=== PATIENT | male | born 1955 | race Two or more races ===

== ENCOUNTER 2017-09-28 22:45 | Observation (INO) | payer OTHER ==
[2017-09-28] MEDS ORDERED: ASPIRIN 81 MG TABLET, CHEWABLE PO ONE (23:43)
[2017-09-29] MEDS ORDERED: NITROGLYCERIN 2% OINTMENT 1 GM PACKET TP ONE (01:24)
--- NOTE | 2017-09-29 01:24 | ER Document Report ---
ED General - General Chief Complaint: Chest Pain Stated Complaint: CHEST TIGHTNESS Time Seen by Provider: 09/29/17 01:05 Mode of Arrival: Ambulatory Information source: Patient Notes: This is a 62-year-old man who presents to the emergency room with left-sided chest pain. Patient does have a history of hypertension and states that he has been noncompliant with his medicines. I think this is because of financial reasons. He does report that he was admitted in July for chest pain. Records reveal that he did have an an STEMI which was felt to be demand ischemia from hypertension. Cardiac workup at that time showed no acute ischemia. TRAVEL OUTSIDE OF THE [place] IN LAST 30 DAYS: No - HPI Onset: Just prior to arrival Onset/Duration: Gradual Quality of pain: Dull Severity: Moderate Pain Level: 2 Associated symptoms: Chest pain. denies: Fever, Shortness of breath Exacerbated by: Denies Relieved by: Denies Similar symptoms previously: Yes Recently seen / treated by doctor: Yes - Related Data Allergies/Adverse Reactions: No Known Allergies Allergy (Verified 09/28/17 23:05) Past Medical History - General Information source: Patient - Social History Smoking Status: Never Smoker Cigarette use (# per day): No Chew tobacco use (# tins/day): No Frequency of alcohol use: None Drug Abuse: None Lives with: Spouse/Significant other Family History: Malignancy - Gastric cancer and hepatic cancer - Past Medical History Cardiac Medical History: Reports: Hx Hypertension Renal/ Medical History: Denies: Hx Peritoneal Dialysis Past Surgical History: Reports: Hx Herniorrhaphy - Bilateral, Hx Tonsillectomy Review of Systems - Review of Systems Constitutional: denies: Chills, Fever EENT: No symptoms reported Cardiovascular: See HPI Respiratory: No symptoms reported Gastrointestinal: No symptoms reported Genitourinary: No symptoms reported Male Genitourinary: No symptoms reported Musculoskeletal: No symptoms reported Skin: No symptoms reported Hematologic/Lymphatic: No symptoms reported Neurological/Psychological: No symptoms reported Physical Exam - Vital signs Vitals: Temp Pulse Resp BP Pulse Ox 98 F 77 16 180/115 H 99 09/28/17 23:14 09/28/17 23:14 09/28/17 23:14 09/28/17 23:14 09/28/17 23:14 Notes: Physical exam: GENERAL: 62-year-old man, alert and oriented 3, no acute distress HEAD: Atraumatic, normocephalic. EYES: Pupils equal round and reactive to light, extraocular movements intact, sclera anicteric, conjunctiva are normal. ENT: TMs normal, nares patent, oropharynx clear without exudates. Moist mucous membranes. NECK: Normal range of motion, supple without obvious mass or JVD. LUNGS: Breath sounds clear to auscultation bilaterally and equal. No wheezes rales or rhonchi. HEART: Regular rate and rhythm without murmurs, rubs or gallops. ABDOMEN: Soft, normoactive bowel sounds. No tenderness to palpation. No guarding, no rebound. No masses appreciated. EXTREMITIES: Normal range of motion, no pitting or edema. No clubbing or cyanosis. NEUROLOGICAL: Cranial nerves II through XII grossly intact. Normal speech, moving all extremities. PSYCH: Normal mood, normal affect. SKIN: Warm, Dry, normal turgor, no rashes or lesions noted. Course - Vital Signs Vital signs: Temp Pulse Resp BP Pulse Ox 98 F 77 16 182/110 H 97 09/28/17 23:14 09/28/17 23:14 09/29/17 01:18 09/29/17 01:18 09/29/17 01:18 - Laboratory Result Diagrams: 09/29/17 01:10 09/29/17 02:50 Laboratory results interpreted by me: 09/29/17 02:50 Creatine Kinase 177 H - Diagnostic Test Radiology reviewed: Image reviewed, Reports reviewed - Chest x-ray shows no infiltrates or effusions - EKG Interpretation by Me Rate: Normal Rhythm: NSR - EKG shows normal sinus rhythm with a ventricular rate of 71, no acute ST-T wave change Discharge - Discharge Clinical Impression: Chest pain Condition: Stable Disposition: ADMITTED OBSERVATION Admitting Provider: Hospitalist - dr Barahona Unit Admitted: Telemetry Referrals: JOHN DIAZ MD [Primary Care Provider] - Follow up as needed
[2017-09-29 01:32] LABS: ABSOLUTE BASOPHILS # (AUTO) 0.1 10^3/uL (0.0-0.2); ABSOLUTE EOSINOPHILS # (AUTO) 0.2 10^3/uL (0.0-0.6); ABSOLUTE LYMPHOCYTES (AUTO) 2.1 10^3/uL (0.5-4.7); ABSOLUTE MONOCYTES (AUTO) 0.4 10^3/uL (0.1-1.4); ABSOLUTE NEUT (AUTO) 2.7 10^3/uL (1.7-8.2); BASOPHILS % (AUTO) 1.5 % (0-2); EOSINOPHILS % (AUTO) 4.1 % (0-6); HEMATOCRIT 41.4 % (37.9-51.0); HEMOGLOBIN 14.7 g/dL (13.5-17.0); HGB HCT DIFFERENCE 2.7; LYMPHOCYTES % (AUTO) 37.9 % (13-45); MEAN CORPUSCULAR HEMOGLOBIN 31.6 pg (27.0-33.4); MEAN CORPUSCULAR HGB CONC 35.6 g/dL (32.0-36.0); MEAN CORPUSCULAR VOLUME 89 fl (80-97); MONOCYTES % (AUTO) 7.5 % (3-13); RED BLOOD COUNT 4.67 10^6/uL (4.35-5.55); WHITE BLOOD COUNT 5.4 10^3/uL (4.0-10.5)
[2017-09-29] MEDS ORDERED: ACETAMINOPHEN 325 MG TABLET PO ONE (02:13)
--- NOTE | 2017-09-29 02:16 | RADIOLOGY REPORT (SQ) ---
EXAM DESCRIPTION: CHEST SINGLE VIEW COMPLETED DATE/TIME: 09/29/2017 1:55 am REASON FOR STUDY: chest pain COMPARISON: 08.18.17 EXAM PARAMETERS: NUMBER OF VIEWS: One view. TECHNIQUE: Single frontal radiographic view of the chest acquired. RADIATION DOSE: NA LIMITATIONS: None. FINDINGS: LUNGS AND PLEURA: No opacities, masses or pneumothorax. No pleural effusion. MEDIASTINUM AND HILAR STRUCTURES: No masses. Contour normal. HEART AND VASCULAR STRUCTURES: Heart normal in size. Atherosclerosis. BONES: No acute findings. HARDWARE: None in the chest. OTHER: No other significant finding. IMPRESSION: NO ACUTE RADIOGRAPHIC FINDING IN THE CHEST. TECHNICAL DOCUMENTATION: JOB ID: [id number] [employer]- All Rights Reserved
[2017-09-29 03:32] LABS: ALANINE AMINOTRANSFERASE 39 U/L (21-72); ALBUMIN 3.8 g/dL (3.5-5.0); ALKALINE PHOSPHATASE 73 U/L (38-126); ANION GAP 10 (5-19); ASPARTATE AMINO TRANSFERASE 32 U/L (17-59); BILIRUBIN,DIRECT 0.2 mg/dL (0.0-0.4); BILIRUBIN,TOTAL 0.7 mg/dL (0.2-1.3); BLOOD UREA NITROGEN 11 mg/dL (7-20); CALCIUM 8.7 mg/dL (8.4-10.2); CARBON DIOXIDE 26 mmol/L (22-30); CHLORIDE 107 mmol/L (98-107); CREATINE KINASE 177 U/L (55-170); CREATININE RESULT 0.77 mg/dL (0.52-1.25); GLUCOSE 99 mg/dL (75-110); POTASSIUM 3.7 mmol/L (3.6-5.0); SODIUM 143.3 mmol/L (137-145); TOTAL PROTEIN 6.3 g/dL (6.3-8.2)
[2017-09-29] MEDS ORDERED: MORPHINE SULFATE 10 MG/ML INJ IV PRN (04:21)
[2017-09-29] MEDS ORDERED: ONDANSETRON 4 MG TAB.RAPDIS PO PRN (04:21)
[2017-09-29] MEDS ORDERED: MAG HYDROX/AL HYDROX/SIMETH SUSP 30 ML UDCUP PO PRN (04:21)
[2017-09-29] MEDS ORDERED: LISINOPRIL 10 MG TABLET PO ONE (04:45)
--- NOTE | 2017-09-29 04:59 | PDOC H&P ---
History of Present Illness Admission Date/PCP: 09/29/17 03:54 JOHN DIAZ MD History of Present Illness: KEO FORMAN is a 62 year old male with a hx of NSTEMI in july, hypertension, hyperlipidemia who presents with complaints of chest pain. He reports the chest pain started at 7 PM slightly after dinner. He reports it was pressure on the left upper part of his chest and he felt dizzy with this. He denies any associated shortness of breath, diaphoresis, nausea, vomiting. His pain does not radiate. Patient is found to have hypertensive emergency on presentation. Patient was admitted in July for chest pain at which time he did have an elevation of his cardiac enzymes and was found to have a NSTEMI and was subsequently stressed which was found to be negative. He is referred to the hospital service for chest pain. Past Medical History Cardiac Medical History: Reports: Myocardial Infarction, Hyperlipidema, Hypertension Past Surgical History Past Surgical History: Reports: Herniorrhaphy - Bilateral, Tonsillectomy Social History Lives with: Spouse/Significant other Smoking Status: Never Smoker Frequency of Alcohol Use: Occasional Hx Recreational Drug Use: No Drugs: None Hx Prescription Drug Abuse: No - Advance Directive Resuscitation Status: Full Code Surrogate healthcare decision maker:: , Yesenia Family History Family History: Malignancy - Gastric cancer and hepatic cancer Parental Family History Reviewed: Yes Children Family History Reviewed: Yes Sibling(s) Family History Reviewed.: Yes Medication/Allergy Home Medications: Aspirin [Aspirin 81 mg Chewable Tablet] 81 mg PO DAILY tab.chew 08/20/17 Atorvastatin Calcium [Lipitor 10 mg Tablet] 40 mg PO QHS #30 tablet 08/20/17 Carvedilol [Coreg 6.25 mg Tablet] 6.25 mg PO Q12 #60 tablet 08/20/17 Clopidogrel Bisulfate [Plavix 75 mg Tablet] 75 mg PO DAILY #30 tablet 08/20/17 Hydrochlorothiazide [Hydrodiuril 12.5 mg Capsule] 12.5 mg PO QAM #30 capsule Lisinopril [Prinivil 10 mg Tablet] 10 mg PO DAILY #30 tablet 08/20/17 Allergies/Adverse Reactions: No Known Allergies Allergy (Verified 09/28/17 23:05) Review of Systems Constitutional: ABSENT: chills, fever(s), headache(s), weight gain, weight loss Eyes: ABSENT: visual disturbances Ears: ABSENT: hearing changes Cardiovascular: PRESENT: as per HPI, chest pain. ABSENT: dyspnea on exertion, edema, orthropnea, palpitations Respiratory: ABSENT: cough, dyspnea, hemoptysis, sputum Gastrointestinal: ABSENT: abdominal pain, constipation, diarrhea, hematemesis, hematochezia, nausea, vomiting Genitourinary: ABSENT: dysuria, hematuria Musculoskeletal: ABSENT: joint swelling Integumentary: ABSENT: rash, wounds Neurological: ABSENT: abnormal gait, abnormal speech, confusion, dizziness, focal weakness, syncope Psychiatric: ABSENT: anxiety, depression, homidical ideation, suicidal ideation Endocrine: ABSENT: cold intolerance, heat intolerance, polydipsia, polyuria Hematologic/Lymphatic: ABSENT: easy bleeding, easy bruising Physical Exam Vital Signs: Temp Pulse Resp BP Pulse Ox 98 F 77 17 156/107 H 96 09/28/17 23:14 09/28/17 23:14 09/29/17 04:01 09/29/17 04:01 09/29/17 04:01 General appearance: PRESENT: mild distress, well-developed, well-nourished Head exam: PRESENT: atraumatic, normocephalic Eye exam: PRESENT: conjunctival injection, conjunctiva pink, EOMI, PERRLA. ABSENT: scleral icterus Ear exam: PRESENT: normal external ear exam Mouth exam: PRESENT: dry mucosa, tongue midline Neck exam: ABSENT: JVD, lymphadenopathy, thyromegaly, tracheal deviation Respiratory exam: PRESENT: clear to auscultation mauro. ABSENT: rales, rhonchi, wheezes Cardiovascular exam: PRESENT: RRR, +S1, +S2. ABSENT: diastolic murmur, rubs, systolic murmur Pulses: PRESENT: normal dorsalis pedis pul Vascular exam: PRESENT: normal capillary refill GI/Abdominal exam: PRESENT: normal bowel sounds, soft. ABSENT: distended, guarding, mass, organolmegaly, rebound, tenderness Rectal exam: PRESENT: deferred Extremities exam: PRESENT: full ROM. ABSENT: calf tenderness, clubbing, pedal edema Neurological exam: PRESENT: alert, awake, oriented to person, oriented to place , oriented to time, oriented to situation, CN II-XII grossly intact. ABSENT: motor sensory deficit Psychiatric exam: PRESENT: appropriate affect, normal mood. ABSENT: homicidal ideation, suicidal ideation Skin exam: PRESENT: dry, intact, warm. ABSENT: cyanosis, rash Results Laboratory Results: 09/29/17 09/29/17 09/29/17 01:10 02:50 02:50 WBC 5.4 Hgb 14.7 Hct 41.4 Plt Count 166 Potassium 3.7 Creatinine 0.77 Creatine Kinase 177 H Troponin I < 0.012 Impressions: Chest X-Ray 09/28/17 23:43 IMPRESSION: NO ACUTE RADIOGRAPHIC FINDING IN THE CHEST. Status: Imported from PACS Assessment & Plan - Diagnosis (1) Chest pain Qualifiers: Chest pain type: unspecified Qualified Code(s): R07.9 - Chest pain, unspecified Is this a current diagnosis for this admission?: Yes Plan: Place patient on telemetry observation. Monitor for arrhythmia or ST segment changes. Initiate patient on treatment dose Lovenox. Initiate patient on coreg, Lipitor, oxygen, nitroglycerin, morphine, and aspirin. Serial cardiac enzymes every 6 hours. Testing lipid panel in the morning. (2) Hypertensive emergency Is this a current diagnosis for this admission?: Yes (3) Aortic aneurysm Qualifiers: Aortic location: thoracic aorta Presence of rupture: without rupture Qualified Code(s): I71.2 - Thoracic aortic aneurysm, without rupture Is this a current diagnosis for this admission?: Yes Plan: Blood pressure control - Time Time Spent: 30 to 50 Minutes Medications reviewed and adjusted accordingly: Yes Within: within 24 hours - Inpatient Certification Based on my medical assessment, after consideration of the patient's comorbidities, presenting symptoms, or acuity I expect that the services needed warrant INPATIENT care.: No I certify that my determination is in accordance with my understanding of Medicare's requirements for reasonable and necessary INPATIENT services [42 CFR 412.3e].: No Medical Necessity: Need For Continuous Telemetry Monitoring Post Hospital Care: D/C [employer] Worker Documentation
[2017-09-29 05:54] LABS: CREATINE KINASE MB 1.63 ng/mL (<4.55)
[2017-09-29 05:59] LABS: TROPONIN I < 0.012 ng/mL
[2017-09-29] MEDS: NITROGLYCERIN 2% OINTMENT 1 GM PACKET TP SCH ×2 (06:00→11:56)
[2017-09-29] MEDS: HYDROCHLOROTHIAZIDE 12.5 MG CAPSULE PO SCH (08:38)
--- NOTE | 2017-09-29 09:47 | EKG REPORT ---
SEVERITY:- BORDERLINE ECG - SINUS RHYTHM BORDERLINE T ABNORMALITIES, INFERIOR LEADS : Confirmed by: Slim Paz MD 29-Sep-2017 09:46:52
[2017-09-29] MEDS: ASPIRIN 325 MG TABLET, ENT COATED PO SCH (11:48)
[2017-09-29] MEDS: CARVEDILOL 6.25 MG TABLET PO SCH ×2 (11:48→22:45)
[2017-09-29] MEDS: CLOPIDOGREL BISULFATE 75 MG TABLET PO SCH (11:49)
[2017-09-29] MEDS: ENOXAPARIN SODIUM INJ 80 MG/0.8 ML DISP.SYRIN SUBCUT SCH ×2 (11:57→22:46)
[2017-09-29 13:14] LABS: CREATINE KINASE MB 1.33 ng/mL (<4.55)
[2017-09-29 13:21] LABS: TROPONIN I < 0.012 ng/mL
--- NOTE | 2017-09-29 16:32 | Progress Note ---
Provider Note Provider Note: Patient seen and his daughter was present who speaks excellent Luxembourgish. They denied the need for cartographic technician. Patient denies any further chest pain. Blood pressure is improving. His major complaint is he is having a headache with the Nitropaste on. He was admitted in July about 5-6 weeks ago for chest pain found to have a type II AR mismatch due to elevated blood pressure and abnormal troponins. Patient had been out of his blood pressure medications due to compliance and financial reasons. Daughter states she has most of his prescriptions and will take him to the pharmacy in the morning to get them filled but the pharmacy is today. Suggested patient be keep him overnight observation monitor his blood pressure, keep him on transport analyst his heart rate, continue the serial his troponins. No need for further stress test at this time felt as if patient will take his medications that his chest pain will go away. I have discussed this with Dr. De La Garza who states that treat patient with Prilosec or Pepcid and we have DC'd his lisinopril due to he has a cough. I have taken the nitro paste off the patient on Imdur while he is in the hospital and was given a prescription to see if he can get financial assistance with it at home. Plan discharge early a.m.
[2017-09-29 17:50] LABS: TROPONIN I < 0.012 ng/mL
[2017-09-29] MEDS: FAMOTIDINE 20 MG TABLET PO SCH (18:14)
[2017-09-29] MEDS: ISOSORBIDE MONONITRATE 30 MG TAB.ER.24H PO SCH (18:14)
[2017-09-29] MEDS: ACETAMINOPHEN 325 MG TABLET PO PRN (19:42)
[2017-09-29] MEDS ORDERED: LISINOPRIL 10 MG TABLET PO SCH (22:00)
[2017-09-29] MEDS ORDERED: ATORVASTATIN CALCIUM 40 MG TABLET PO SCH (22:00)
[2017-09-30] MEDS: ISOSORBIDE MONONITRATE 30 MG TAB.ER.24H PO SCH (05:27)
[2017-09-30] MEDS: FAMOTIDINE 20 MG TABLET PO SCH (05:27)
[2017-09-30] MEDS: ACETAMINOPHEN 325 MG TABLET PO PRN (05:28)
[2017-09-30 06:42] LABS: HEMATOCRIT 37.1 % (37.9-51.0); HEMOGLOBIN 12.9 g/dL (13.5-17.0); HGB HCT DIFFERENCE 1.6; MEAN CORPUSCULAR HEMOGLOBIN 30.8 pg (27.0-33.4); MEAN CORPUSCULAR HGB CONC 34.9 g/dL (32.0-36.0); MEAN CORPUSCULAR VOLUME 88 fl (80-97); RED CELL DISTRIBUTION WIDTH 12.8 % (11.5-14.0); WHITE BLOOD COUNT 6.2 10^3/uL (4.0-10.5)
[2017-09-30 06:53] LABS: CREATINE KINASE 68 U/L (55-170); Direct HDL 33 mg/dL (>40); TRIGLYCERIDES 130 mg/dL (<150)
[2017-09-30 07:03] LABS: DIRECT LDL 76 mg/dL (<100)
[2017-09-30] MEDS: HYDROCHLOROTHIAZIDE 12.5 MG CAPSULE PO SCH (08:02)
[2017-09-30 08:36] VITALS: BP 134/75
[2017-09-30] MEDS: ASPIRIN 325 MG TABLET, ENT COATED PO SCH (08:39)
[2017-09-30] MEDS: CLOPIDOGREL BISULFATE 75 MG TABLET PO SCH (08:40)
[2017-09-30] MEDS: CARVEDILOL 6.25 MG TABLET PO SCH (08:41)
--- NOTE | 2017-09-30 16:55 | PDOC DISCHARGE SUMMARY ---
General - Admit/Disc Date/PCP Admission Date/Primary Care Provider: 09/29/17 03:54 JOHN DIAZ MD Discharge Date: 09/30/17 - Discharge Diagnosis (1) Chest pain Is this a current diagnosis for this admission?: Yes (2) Hypertensive emergency Is this a current diagnosis for this admission?: Yes - Additional Information Resuscitation Status: Full Code Discharge Diet: Cardiac Discharge Activity: Activity As Tolerated Home Medications: Acetaminophen [Tylenol 325 mg Tablet] 650 mg PO Q4HP PRN tablet 09/29/17 Amlodipine Besylate [Norvasc 5 mg Tablet] 5 mg PO DAILY #30 tablet 09/29/17 Aspirin [Aspirin 81 mg Chewable Tablet] 81 mg PO DAILY 09/29/17 Aspirin [Ecotrin 325 mg EC Tablet] 325 mg PO DAILY tabec 09/29/17 Atorvastatin Calcium [Lipitor 10 mg Tablet] 10 mg PO QHS 09/29/17 Atorvastatin Calcium [Lipitor 40 mg Tablet] 40 mg PO QHS tablet 09/29/17 Carvedilol [Coreg 6.25 mg Tablet] 6.25 mg PO Q12 09/29/17 Carvedilol [Coreg 6.25 mg Tablet] 6.25 mg PO Q12 tablet 09/29/17 Clopidogrel Bisulfate [Plavix 75 mg Tablet] 75 mg PO DAILY 09/29/17 Clopidogrel Bisulfate [Plavix 75 mg Tablet] 75 mg PO DAILY tablet 09/29/17 Famotidine [Pepcid 20 mg Tablet] 20 mg PO Q12 #60 tablet 09/29/17 Hydrochlorothiazide [Hydrodiuril 12.5 mg Capsule] 12.5 mg PO QAM #0 capsule 01/11 Hydrochlorothiazide [Hydrodiuril 12.5 mg Capsule] 12.5 mg PO QAM #30 capsule 01/11 Isosorbide Mononitrate [Imdur 30 mg Tablet.er] 30 mg PO BID #60 tab.er.24h 09/29 Lisinopril [Prinivil 10 mg Tablet] 20 mg PO Q12 tablet 09/29/17 History of Present Illness History of Present Illness: KEO FORMAN is a 62 year old male speaking patient seen discharge instructions given via her daughter who speaks excellent Haitian. Patient denies any further chest pain throughout the night. His major complaint is headache with Nitropaste. Suspect he was not taking any of his medications at home causing him to come in the hospital with a hypertensive emergency requiring IV medications to be given in the ER. Financial assistance was obtained. He was given lisinopril which was DC'd due to his cough and was placed on Imdur and per his request he wanted to go home early this morning but I wanted to make sure he was able to get his medications prior to going home which he cannot do yesterday due to the pharmacy was closed Hospital Course Hospital Course: Discuss with cardiology. Patient had a recent stress test about 1 month ago that was negative he had a type II ME abnormal troponins but he has not been taking his medications outpatient so he came in with hypertensive crisis which was controlled his blood pressure stabilized patient agreed to take his home medications. Financial assistance was obtained while he was here. His prescriptions were given to him by the [facility]. Physical Exam Vital Signs: Temp Pulse Resp BP Pulse Ox 98.3 F 69 15 122/72 97 09/30/17 08:32 09/30/17 08:32 09/30/17 08:32 09/30/17 08:32 09/30/17 08:32 Intake & Output 09/29/17 09/30/17 10/01/17 06:59 06:59 06:59 Intake Total 482 Output Total 975 Balance -493 Weight 74.1 kg General appearance: PRESENT: no acute distress, well-developed, well-nourished Head exam: PRESENT: atraumatic, normocephalic Eye exam: PRESENT: conjunctiva pink, EOMI, PERRLA. ABSENT: scleral icterus Ear exam: PRESENT: normal external ear exam Mouth exam: PRESENT: moist, tongue midline Neck exam: ABSENT: carotid bruit, JVD, lymphadenopathy, thyromegaly Respiratory exam: PRESENT: clear to auscultation mauro. ABSENT: rales, rhonchi, wheezes Cardiovascular exam: PRESENT: RRR. ABSENT: diastolic murmur, rubs, systolic murmur Pulses: PRESENT: normal dorsalis pedis pul Vascular exam: PRESENT: normal capillary refill GI/Abdominal exam: PRESENT: normal bowel sounds, soft. ABSENT: distended, guarding, mass, organolmegaly, rebound, tenderness Rectal exam: PRESENT: deferred Extremities exam: PRESENT: full ROM. ABSENT: calf tenderness, clubbing, pedal edema Neurological exam: PRESENT: alert, awake, oriented to person, oriented to place , oriented to time, oriented to situation, CN II-XII grossly intact. ABSENT: motor sensory deficit Psychiatric exam: PRESENT: appropriate affect, normal mood. ABSENT: homicidal ideation, suicidal ideation Skin exam: PRESENT: dry, intact, warm. ABSENT: cyanosis, rash Results Laboratory Results: 09/30/17 06:31 09/30/17 09/30/17 06:31 06:31 WBC 6.2 RBC 4.20 L Hgb 12.9 L Hct 37.1 L MCV 88 MCH 30.8 MCHC 34.9 RDW 12.8 Plt Count 139 L Triglycerides 130 Cholesterol 135.20 LDL Cholesterol Direct 76 VLDL Cholesterol 26.0 HDL Cholesterol 33 L 09/29/17 09/29/17 09/29/17 04:54 11:39 16:50 Creatine Kinase CK-MB (CK-2) 1.63 1.33 1.10 Troponin I < 0.012 < 0.012 < 0.012 09/30/17 06:31 Creatine Kinase 68 CK-MB (CK-2) Troponin I Impressions: Chest X-Ray 09/28/17 23:43 IMPRESSION: NO ACUTE RADIOGRAPHIC FINDING IN THE CHEST. Plan Discharge Plan: Follow-up with his screw remover in 1-2 weeks and his primary care physician Time Spent: Less than 30 Minutes
== END 2017-09-30 09:50 | disposition home or self-care (01) ==
LOC: ER 22:45 → EH 09-29 03:54 → 4S 09-29 05:41
PROVIDERS: ADMIT Family Medicine; ATTEND Family Medicine
DX: R07.89 Other chest pain (principal); I16.1 Hypertensive emergency; R05 Cough; E78.5 Hyperlipidemia, unspecified; I71.2 Thoracic aortic aneurysm, without rupture; I25.2 Old myocardial infarction; Z91.14 Patient's other noncompliance with medication regimen
CPT/HCPCS: 93005; 99285; 36415 ×2; 82553; 82550 ×2; 85025; 85027; 80053; 84484; 80061; 71010; 93010; G0378 ×3; J3490 ×2; J1650

== ENCOUNTER 2018-02-14 03:47 | Observation (INO) | payer OTHER ==
[2018-02-14] MEDS ORDERED: ASPIRIN 81 MG TABLET, CHEWABLE PO ONE (04:13)
--- NOTE | 2018-02-14 04:14 | ER Document Report ---
ED General - General TRAVEL OUTSIDE OF THE [place] IN LAST 30 DAYS: No <JANEE ELMORE - Last Filed: 02/14/18 07:10> <SCAR FABIAN - Last Filed: 02/14/18 08:09> - General Chief Complaint: High Blood Pressure Stated Complaint: BLOOD PRESSURE PROBLEM - HPI Notes: Patient is a 62-year-old male with a history of hypercholesterolemia as well as hypertension who presents to the ED complaining of elevated blood pressure, "mild" chest pain, and bilateral neck pain for the last 2 hours. He states that he did have a mild blurriness to his vision for a couple minutes which has since resolved. Patient states that when his blood pressure rises he develops pain in his bilateral neck is worse with twisting movements. Patient states that the chest pain does not radiate. She states that he is ambulatory without any shortness of breath or worsening pain. Patient states that he is on blood pressure medication and has been taking that daily as directed. Patient was evaluated 6mos ago for similar presentation and was found to have an non-STEMI believed to be caused from the hypertensive emergency. Patient had a negative cardiac workup thereafter for any reversible ischemia. He has no other concerns or complaints at this time. Denies any smoking or IV drug use. Denies any headache, fever, URI, sore throat, palpitations, syncope, cough, shortness of breath, wheeze, dyspnea, abdominal pain, nausea/vomiting/diarrhea, urinary retention, dysuria, hematuria, loss of control of bowel or bladder, numbness/tingling, saddle anesthesia, muscle paralysis/weakness, or rash. ( JANEE ELMORE) - Related Data Allergies/Adverse Reactions: lisinopril Adverse Reaction (Verified 09/29/17 14:43) cough Past Medical History - Social History Smoking Status: Never Smoker Family History: Malignancy - Gastric cancer and hepatic cancer - Past Medical History Cardiac Medical History: Reports: Hx Heart Attack, Hx Hypercholesterolemia, Hx Hypertension Renal/ Medical History: Denies: Hx Peritoneal Dialysis Past Surgical History: Reports: Hx Herniorrhaphy - Bilateral, Hx Tonsillectomy <JANEE ELMORE - Last Filed: 02/14/18 07:10> Review of Systems - Review of Systems -: Yes All other systems reviewed and negative <JANEE ELMORE - Last Filed: 02/14/18 07:10> Physical Exam <JANEE ELMORE - Last Filed: 02/14/18 07:10> <RUISCAR - Last Filed: 02/14/18 08:09> - Vital signs Vitals: Temp Pulse Resp BP Pulse Ox 97.7 F 78 18 204/121 H 99 02/14/18 03:48 02/14/18 03:48 02/14/18 03:48 02/14/18 03:48 02/14/18 03:48 - Notes Notes: PHYSICAL EXAMINATION: GENERAL: Well-appearing, well-nourished and in no acute distress. A&Ox4. answers questions appropriately. HEAD: Atraumatic, normocephalic. EYES: Pupils equal round and reactive to light, extraocular movements intact, sclera anicteric, conjunctiva are normal. Vis robins intact. no nystagmus. ENT: Nares patent and without discharge. oropharynx clear without exudates. No tonsilar hypertrophy or erythema. Moist mucous membranes. NECK: Normal range of motion, supple without lymphadenopathy. + mild tenderness to the c-paraspinal mm b/l. no midline tenderness. N/v intact UE's. LUNGS: Breath sounds clear to auscultation bilaterally and equal. No wheezes rales or rhonchi. HEART: Regular rate and rhythm without murmurs, rubs, gallops. ABDOMEN: Soft, nontender, nondistended abdomen. No guarding, no rebound. No masses appreciated. Normal bowel sounds present. No CVA tenderness bilaterally. Musculoskeletal: FROM to passive/active. Strength 5+/5. Extremities: No cyanosis, clubbing, or edema b/l. Peripheral pulses 2+. Capillary refill less than 3 seconds. NEUROLOGICAL: Cranial nerves grossly intact. Normal speech, normal gait. Normal sensory, motor exams PSYCH: Normal mood, normal affect. SKIN: Warm, Dry, normal turgor, no rashes or lesions noted. (JANEE ELMORE) Course - Laboratory Result Diagrams: 02/14/18 04:35 02/14/18 04:35 <JANEE ELMORE - Last Filed: 02/14/18 07:10> - Laboratory Result Diagrams: 02/14/18 04:35 02/14/18 04:35 - Diagnostic Test Radiology reviewed: Reports reviewed <SCAR FABIAN - Last Filed: 02/14/18 08:09> - Re-evaluation Re-evalutation: 02/14/18 05:30 Patient is an afebrile, well-hydrated, 62-year-old male who presents to the ED with elevated blood pressure and chest pain. CBC, CMP, cardiac enzymes 1/EKG are all unremarkable for any acute pathology. Patient was given nitro sublingual 1 which resolved his chest pain. His blood pressure improved to 140 /100 from 200+/120+. Patient states that he is feeling much better. Patient has a heart score of 4. Reviewed with Dr. Cline who recommends chest pain obs. Reviewed with hospitalist who declined admission at this time and to recheck 2nd trop. We will order 2nd trop and reevaluate at that time. 02/14/18 06:44 Recheck of patient. Pt states that he has a mild MORA, and declined any tylenol for his symptoms at this time. pt states that it is slowly starting to improve. He has no other concerns or complaints and states that he still is feeling much better than when he first arrived. Reviewed with patient that Scar BUSH will be taking over for me about 0700 this morning of which they verbalized understanding. 02/14/18 07:10 Transfer of care to Scar BUSH. (JANEE ELMORE) 02/14/18 07:40 Patient denies any chest pain at this time, patient's blood pressure is starting to trend upward. Patient states that he normally takes amlodipine and Coreg for his blood pressure. Patient's repeat troponin without any elevation. 02/14/18 08:[address] Avitia who does agree to accept patient to a med telemetry bed. (SCAR FABIAN) - Vital Signs Vital signs: Temp Pulse Resp BP Pulse Ox 97.7 F 78 12 160/108 H 98 02/14/18 03:48 02/14/18 03:48 02/14/18 07:21 02/14/18 07:21 02/14/18 07:21 - Laboratory Laboratory results interpreted by me: 02/14/18 04:35 Glucose 112 H 02/14/18 08:08 Labs- Entire Visit 02/14/18 02/14/18 02/14/18 04:35 04:35 04:35 WBC 5.4 RBC 4.90 Hgb 14.9 Hct 43.8 MCV 89 MCH 30.5 MCHC 34.1 RDW 13.4 Plt Count 178 Seg Neutrophils % 55.7 Lymphocytes % 31.4 Monocytes % 8.1 Eosinophils % 3.8 Basophils % 1.0 Absolute Neutrophils 3.0 Absolute Lymphocytes 1.7 Absolute Monocytes 0.4 Absolute Eosinophils 0.2 Absolute Basophils 0.1 PT 13.6 INR 0.99 Sodium 144.4 Potassium 4.2 Chloride 103 Carbon Dioxide 30 Anion Gap 11 BUN 16 Creatinine 0.91 Est GFR ( Amer) > 60 Est GFR (Non-Af Amer) > 60 Glucose 112 H Calcium 9.5 Total Bilirubin 0.5 Direct Bilirubin 0.3 Neonat Total Bilirubin Not Reportable Neonat Direct Bilirubin Not Reportable Neonat Indirect Bili Not Reportable AST 24 ALT 26 Alkaline Phosphatase 64 Creatine Kinase 63 CK-MB (CK-2) Troponin I Total Protein 7.2 Albumin 4.3 Urine Color Urine Appearance Urine pH Ur Specific Valencia Urine Protein Urine Glucose (UA) Urine Ketones Urine Blood Urine Nitrite Urine Bilirubin Urine Urobilinogen Ur Leukocyte Esterase Urine WBC (Auto) Squamous Epi Cells Auto Urine Mucus (Auto) Urine Ascorbic Acid 02/14/18 02/14/18 02/14/18 04:35 06:35 06:50 WBC RBC Hgb Hct MCV MCH MCHC RDW Plt Count Seg Neutrophils % Lymphocytes % Monocytes % Eosinophils % Basophils % Absolute Neutrophils Absolute Lymphocytes Absolute Monocytes Absolute Eosinophils Absolute Basophils PT INR Sodium Potassium Chloride Carbon Dioxide Anion Gap BUN Creatinine Est GFR ( Amer) Est GFR (Non-Af Amer) Glucose Calcium Total Bilirubin Direct Bilirubin Neonat Total Bilirubin Neonat Direct Bilirubin Neonat Indirect Bili AST ALT Alkaline Phosphatase Creatine Kinase CK-MB (CK-2) 1.03 Troponin I < 0.012 < 0.012 Total Protein Albumin Urine Color STRAW Urine Appearance CLEAR Urine pH 6.0 Ur Specific Valencia 1.009 Urine Protein NEGATIVE Urine Glucose (UA) NEGATIVE Urine Ketones NEGATIVE Urine Blood NEGATIVE Urine Nitrite NEGATIVE Urine Bilirubin NEGATIVE Urine Urobilinogen NEGATIVE Ur Leukocyte Esterase NEGATIVE Urine WBC (Auto) 0 Squamous Epi Cells Auto <1 Urine Mucus (Auto) RARE Urine Ascorbic Acid NEGATIVE (SCAR FABIAN) Discharge <JANEE ELMORE - Last Filed: 02/14/18 07:10> - Discharge Unit Admitted: Telemetry <SCAR FABIAN - Last Filed: 02/14/18 08:09> - Discharge Clinical Impression: Hypertensive urgency Chest pain Qualifiers: Chest pain type: unspecified Qualified Code(s): R07.9 - Chest pain, unspecified Condition: Stable Disposition: ADMITTED OBSERVATION
[2018-02-14] MEDS ORDERED: NITROGLYCERIN 0.4 MG/TAB 25 TAB/BOTTLE SL PRN (04:36)
--- NOTE | 2018-02-14 04:45 | RADIOLOGY REPORT (SQ) ---
EXAM DESCRIPTION: CHEST SINGLE VIEW CLINICAL HISTORY: chest pain COMPARISON: 09/29/2017 FINDINGS: Single frontal view of the chest. Tortuosity of thoracic aorta. Heart is not enlarged. Leads overlie the chest. No consolidation, pneumothorax, or pleural effusion. No displaced rib fractures identified. Upper abdominal soft tissues are unremarkable. IMPRESSION: 1. No acute pulmonary process identified.
[2018-02-14 04:51] LABS: ABSOLUTE BASOPHILS # (AUTO) 0.1 10^3/uL (0.0-0.2); ABSOLUTE EOSINOPHILS # (AUTO) 0.2 10^3/uL (0.0-0.6); ABSOLUTE LYMPHOCYTES (AUTO) 1.7 10^3/uL (0.5-4.7); ABSOLUTE MONOCYTES (AUTO) 0.4 10^3/uL (0.1-1.4); EOSINOPHILS % (AUTO) 3.8 % (0-6); HEMATOCRIT 43.8 % (37.9-51.0); HEMOGLOBIN 14.9 g/dL (13.5-17.0); LYMPHOCYTES % (AUTO) 31.4 % (13-45); MEAN CORPUSCULAR HEMOGLOBIN 30.5 pg (27.0-33.4); MEAN CORPUSCULAR HGB CONC 34.1 g/dL (32.0-36.0); MEAN CORPUSCULAR VOLUME 89 fl (80-97); MONOCYTES % (AUTO) 8.1 % (3-13); PLATELET COUNT 178 10^3/uL (150-450); RED CELL DISTRIBUTION WIDTH 13.4 % (11.5-14.0); SEGMENTED NEUTROPHILS % (AUTO) 55.7 % (42-78); TOTAL CELLS COUNTED % (AUTO) 100 %; WHITE BLOOD COUNT 5.4 10^3/uL (4.0-10.5)
[2018-02-14 04:52] LABS: INTERNATIONAL RATION (INR) 0.99; PROTHROMBIN TIME 13.6 SEC (11.4-15.4)
[2018-02-14 05:02] LABS: ALANINE AMINOTRANSFERASE 26 U/L (21-72); ALBUMIN 4.3 g/dL (3.5-5.0); ALKALINE PHOSPHATASE 64 U/L (38-126); ANION GAP 11 (5-19); ASPARTATE AMINO TRANSFERASE 24 U/L (17-59); BILIRUBIN,DIRECT 0.3 mg/dL (0.0-0.4); BILIRUBIN,TOTAL 0.5 mg/dL (0.2-1.3); BLOOD UREA NITROGEN 16 mg/dL (7-20); CALCIUM 9.5 mg/dL (8.4-10.2); CARBON DIOXIDE 30 mmol/L (22-30); CHLORIDE 103 mmol/L (98-107); CREATINE KINASE 63 U/L (55-170); GLUCOSE 112 mg/dL (75-110); POTASSIUM 4.2 mmol/L (3.6-5.0); SODIUM 144.4 mmol/L (137-145); TOTAL PROTEIN 7.2 g/dL (6.3-8.2)
[2018-02-14 05:13] LABS: CREATINE KINASE MB 1.03 ng/mL (<4.55)
[2018-02-14 05:14] LABS: TROPONIN I < 0.012 ng/mL
[2018-02-14 06:49] LABS: APPEARANCE,URINE CLEAR; BILIRUBIN,URINE NEGATIVE (NEGATIVE); COLOR,URINE STRAW; GLUCOSE, URINE NEGATIVE (NEGATIVE); KETONES,URINE NEGATIVE (NEGATIVE); LEUKOCYTE ESTERASE,URINE NEGATIVE (NEGATIVE); NITRITE,URINE NEGATIVE (NEGATIVE); PROTEIN,URINE NEGATIVE (NEGATIVE); URINE SPECIFIC GRAVITY 1.009; UROBILINOGEN,URINE NEGATIVE mg/dL (<2.0)
[2018-02-14] MEDS ORDERED: AMLODIPINE BESYLATE 5 MG TABLET PO ONE (07:40)
[2018-02-14] MEDS ORDERED: CARVEDILOL 6.25 MG TABLET PO ONE (08:02)
[2018-02-14] MEDS ORDERED: ACETAMINOPHEN 325 MG TABLET PO PRN (10:06)
--- NOTE | 2018-02-14 10:27 | EKG REPORT ---
SEVERITY:- NORMAL ECG - SINUS RHYTHM : Confirmed by: Darnell Rutherford 14-Feb-2018 10:26:22
--- NOTE | 2018-02-14 10:30 | PDOC H&P ---
History of Present Illness Admission Date/PCP: 02/14/18 09:15 Patient complains of: Chest tight, elevated blood pressure, visual changes History of Present Illness: KEO FORMAN is a 62 year old male with a history of an end STEMI last fall due to a hypertensive emergency. He reports that he has not been taking his meds due to financial reasons. Last night while lying in bed he felt some chest tightness, head pressure, had visual changes, confusion, and so came into the emergency department. He was treated with nitro with reduction in his blood pressure and resolution of his symptoms. He states he is unable to work due to his immigration status so has no money. He lives at home with his daughter. Looking at the records it appears that he has gotten his Coreg filled last month but not this month and is gotten none of his other meds filled since September. Past Medical History Cardiac Medical History: Reports: Myocardial Infarction - Type II due to hypertensive emergency, Hyperlipidema, Hypertension Neurological Medical History: Reports: None Past Surgical History Past Surgical History: Reports: Herniorrhaphy - Bilateral, Tonsillectomy Social History Information Source: Patient Lives with: Family Smoking Status: Never Smoker Frequency of Alcohol Use: Occasional Hx Recreational Drug Use: No Drugs: None Hx Prescription Drug Abuse: No Family History Family History: Malignancy - Gastric cancer and hepatic cancer Parental Family History Reviewed: Yes Children Family History Reviewed: No Sibling(s) Family History Reviewed.: No Medication/Allergy Home Medications: Amlodipine Besylate [Norvasc 5 mg Tablet] 5 mg PO DAILY #30 tablet 09/29/17 Aspirin [Aspirin 81 mg Chewable Tablet] 81 mg PO DAILY 09/29/17 Atorvastatin Calcium [Lipitor 40 mg Tablet] 40 mg PO QHS tablet 09/29/17 Carvedilol [Coreg 6.25 mg Tablet] 6.25 mg PO Q12 09/29/17 Clopidogrel Bisulfate [Plavix 75 mg Tablet] 75 mg PO DAILY tablet 09/29/17 Famotidine [Pepcid 20 mg Tablet] 20 mg PO Q12 #60 tablet 09/29/17 Hydrochlorothiazide [Hydrodiuril 12.5 mg Capsule] 12.5 mg PO QAM #0 capsule 01/11 Isosorbide Mononitrate [Imdur 30 mg Tablet.er] 30 mg PO BID #60 tab.er.24h 09/29 Allergies/Adverse Reactions: lisinopril Adverse Reaction (Verified 09/29/17 14:43) cough Review of Systems All systems: reviewed and no additional remarkable complaints except as stated Physical Exam Vital Signs: Temp Pulse Resp BP Pulse Ox 97.7 F 78 18 158/110 H 94 02/14/18 03:48 02/14/18 03:48 02/14/18 09:31 02/14/18 09:31 02/14/18 09:31 General appearance: PRESENT: no acute distress, cooperative Respiratory exam: PRESENT: clear to auscultation mauro Cardiovascular exam: PRESENT: RRR GI/Abdominal exam: PRESENT: soft Extremities exam: PRESENT: other - No edema Musculoskeletal exam: PRESENT: normal inspection Neurological exam: PRESENT: alert Psychiatric exam: PRESENT: appropriate affect Skin exam: PRESENT: dry, warm Results Impressions: Chest X-Ray 02/14/18 04:13 IMPRESSION: 1. No acute pulmonary process identified. Assessment & Plan - Diagnosis (1) Hypertensive emergency Plan: We will restart his home medications, monitor him on telemetry, get serial cardiac enzymes, and adjust the plan from there (2) Non compliance w medication regimen Plan: Social work consult to see if they can help him with resources
[2018-02-14] MEDS: POLYETHYLENE GLYCOL 3350 POWDER 17 GM/1 PACKET PO PRN (16:33)
[2018-02-14] MEDS: ISOSORBIDE MONONITRATE 30 MG TAB.ER.24H PO SCH (18:00)
[2018-02-14] MEDS: FAMOTIDINE 20 MG TABLET PO SCH (21:26)
[2018-02-14] MEDS: CARVEDILOL 6.25 MG TABLET PO SCH (21:26)
[2018-02-14] MEDS ORDERED: ATORVASTATIN CALCIUM 40 MG TABLET PO SCH (22:00)
[2018-02-15] MEDS: ISOSORBIDE MONONITRATE 30 MG TAB.ER.24H PO SCH (05:47)
[2018-02-15] MEDS ORDERED: AMLODIPINE BESYLATE 5 MG TABLET PO SCH (10:00)
[2018-02-15] MEDS ORDERED: ASPIRIN 81 MG TABLET, CHEWABLE PO SCH (10:00)
[2018-02-15] MEDS ORDERED: ENOXAPARIN SODIUM INJ 40 MG/0.4 ML DISP.SYRIN SUBCUT SCH (10:00)
[2018-02-15] MEDS ORDERED: CLOPIDOGREL BISULFATE 75 MG TABLET PO SCH (10:00)
[2018-02-15] MEDS: FAMOTIDINE 20 MG TABLET PO SCH (11:13)
[2018-02-15] MEDS: CARVEDILOL 6.25 MG TABLET PO SCH (11:14)
[2018-02-15] MEDS: POLYETHYLENE GLYCOL 3350 POWDER 17 GM/1 PACKET PO PRN (11:15)
[2018-02-15 12:51] VITALS: BP 113/70
--- NOTE | 2018-02-15 15:10 | PDOC DISCHARGE SUMMARY ---
General - Admit/Disc Date/PCP Admission Date/Primary Care Provider: 02/14/18 09:15 Discharge Date: 02/15/18 - Discharge Diagnosis (1) Hypertensive emergency Is this a current diagnosis for this admission?: Yes Summary: Home medications were resumed and blood pressure normalized. Cardiac enzymes were negative 4. Telemetry was unremarkable. (2) Non compliance w medication regimen Is this a current diagnosis for this admission?: Yes Summary: Due to financial issues. He does not appear to be eligible for governmental assistance due to his immigration status. I gave him prescriptions for all of his medications. - Additional Information Resuscitation Status: Full Code Discharge Diet: Cardiac Discharge Activity: Activity As Tolerated Prescriptions: Amlodipine Besylate [Norvasc 5 mg Tablet] 5 mg PO DAILY #30 tablet Carvedilol [Coreg 6.25 mg Tablet] 6.25 mg PO DAILY #60 tablet Clopidogrel Bisulfate [Plavix 75 mg Tablet] 75 mg PO DAILY #30 tablet MDD LAST FILLED 09/30/17 Isosorbide Mononitrate [Imdur 30 mg Tablet.er] 30 mg PO BID #60 tab.er.24h Home Medications: Aspirin [Aspirin 81 mg Chewable Tablet] 81 mg PO DAILY 09/29/17 Amlodipine Besylate [Norvasc 5 mg Tablet] 5 mg PO DAILY #30 tablet 02/15/18 Carvedilol [Coreg 6.25 mg Tablet] 6.25 mg PO DAILY #60 tablet 02/15/18 Clopidogrel Bisulfate [Plavix 75 mg Tablet] 75 mg PO DAILY #30 tablet MDD LAST FILLED 09/30/17 02/15/18 Isosorbide Mononitrate [Imdur 30 mg Tablet.er] 30 mg PO BID #60 tab.er.24h 02/15 History of Present Illness History of Present Illness: KEO FORMAN is a 62 year old male with a history of an end STEMI last fall due to a hypertensive emergency. He reports that he has not been taking his meds due to financial reasons. Last night while lying in bed he felt some chest tightness, head pressure, had visual changes, confusion, and so came into the emergency department. He was treated with nitro with reduction in his blood pressure and resolution of his symptoms. He states he is unable to work due to his immigration status so has no money. He lives at home with his daughter. Looking at the records it appears that he has gotten his Coreg filled last month but not this month and is gotten none of his other meds filled since September. Hospital Course Hospital Course: He was admitted to a telemetry floor, serial cardiac enzymes were negative 4. Home medications were restarted per his last discharge for the same thing. Blood pressure is normalized and he will be discharged. Physical Exam Vital Signs: Temp Pulse Resp BP Pulse Ox 98.0 F 74 15 113/70 97 02/15/18 12:51 02/15/18 12:51 02/15/18 12:51 02/15/18 12:51 02/15/18 12:51 Intake & Output 02/14/18 02/15/18 02/16/18 06:59 06:59 06:59 Intake Total 540 Balance 540 Weight 74.5 kg General appearance: PRESENT: no acute distress Respiratory exam: PRESENT: clear to auscultation mauro Cardiovascular exam: PRESENT: RRR GI/Abdominal exam: PRESENT: soft Musculoskeletal exam: PRESENT: normal inspection Neurological exam: PRESENT: alert Psychiatric exam: PRESENT: appropriate affect Skin exam: PRESENT: warm Results Laboratory Results: 02/14/18 02/14/18 11:38 16:15 Troponin I < 0.012 < 0.012 Impressions: Chest X-Ray 02/14/18 04:13 IMPRESSION: 1. No acute pulmonary process identified. Qualifiers - * PATEINT BEING DISCHARGED WITH ANY OF THE FOLLOWING DIAGNOSIS?: No
== END 2018-02-15 13:39 | disposition home or self-care (01) ==
LOC: ER 03:47 → INTOOBSV 09:15 → EH 09:15 → OBSVTOIN 09:15 → 4S 13:37
PROVIDERS: ADMIT Internal Medicine; ATTEND Internal Medicine
DX: I16.1 Hypertensive emergency (principal); Z91.14 Patient's other noncompliance with medication regimen; I25.2 Old myocardial infarction; Z59.8 Other problems related to housing and economic circumstances
CPT/HCPCS: 93005; 99285; 36415; 82553; 82550; 85025; 85610; 80053; 81001; 84484; 71045; 93010; G0378 ×3

== ENCOUNTER → 2018-02-25 | Outpatient (CLI) | payer OTHER ==
--- NOTE | 2018-02-25 15:04 | RADIOLOGY REPORT (SQ) ---
EXAM DESCRIPTION: SPINE SINGLE VIEW COMPLETED DATE/TIME: 02/25/2018 9:14 am REASON FOR STUDY: NECK PAIN M54.2 CERVICALGIA COMPARISON: None. NUMBER OF VIEWS: One view. TECHNIQUE: A lateral radiographic image acquired of the cervical spine. LIMITATIONS: None. FINDINGS: MINERALIZATION: Normal. ALIGNMENT: There is loss of the normal cervical lordosis. VERTEBRAE: Vertebral bodies of normal height. DISCS: There is decrease in the C5-C6 and C6-C7 disc space heights with associated osteophytic lippin g. HARDWARE: None in the spine. SOFT TISSUES: No masses or calcifications. Lung apices clear. OTHER: No other significant finding. IMPRESSION: Degenerative changes as noted above TECHNICAL DOCUMENTATION: JOB ID: [id number] [employer]- All Rights Reserved Reading location - IP/workstation name: [email or web address]
== END ==
LOC: OD 09:00
DX: M54.2 Cervicalgia (principal)
CPT/HCPCS: 72020

== ENCOUNTER → 2018-02-25 | Outpatient (CLI) | payer OTHER ==
[2018-02-25 09:36] LABS: CHOLESTEROL 200.57 mg/dL (0-200); TRIGLYCERIDES 123 mg/dL (<150)
[2018-02-25 09:47] LABS: DIRECT LDL 123 mg/dL (<100)
== END ==
LOC: CCC 08:31
DX: E78.5 Hyperlipidemia, unspecified (principal); I10 Essential (primary) hypertension; M25.50 Pain in unspecified joint
CPT/HCPCS: 36415; 80061; 85652; 86038

== ENCOUNTER 2018-03-24 14:03 | Emergency (ER) | payer OTHER ==
[2018-03-24 14:21] VITALS: BP 149/97
--- NOTE | 2018-03-24 14:59 | ER Document Report ---
ED General - General Chief Complaint: High Blood Pressure Stated Complaint: BLOOD PRESSURE ISSUES Time Seen by Provider: 03/24/18 14:46 Mode of Arrival: Ambulatory Information source: Patient Notes: 62-year-old male history of hypertension on Plavix carvedilol norvasc amlodipine presents with complaints of high blood pressure and neck pain, Pt notes the pain worsens with rom, hurts on bilateral sides, not in the middle. pt also notes that he checks his blood pressure at home and it is in the 180s . pt denies any chest pain TRAVEL OUTSIDE OF THE [place] IN LAST 30 DAYS: No - HPI Onset: Last week Onset/Duration: Intermittent Quality of pain: Achy Severity: Mild Pain Level: 1 Associated symptoms: Body/muscle aches, Other Exacerbated by: Movement Relieved by: Denies Similar symptoms previously: Yes Recently seen / treated by doctor: Yes - Related Data Allergies/Adverse Reactions: No Known Allergies Allergy (Unverified 03/24/18 14:05) Past Medical History - Social History Smoking Status: Never Smoker Cigarette use (# per day): No Chew tobacco use (# tins/day): No Smoking Education Provided: No Frequency of alcohol use: Occasional Drug Abuse: None Family History: Reviewed & Not Pertinent, Malignancy - Gastric cancer and hepatic cancer Patient has suicidal ideation: No Patient has homicidal ideation: No - Past Medical History Cardiac Medical History: Reports: Hx Hypercholesterolemia, Hx Hypertension Denies: Hx Congestive Heart Failure, Hx Heart Attack Pulmonary Medical History: Denies: Hx Asthma, Hx Bronchitis, Hx COPD, Hx Pneumonia, Hx Tuberculosis Neurological Medical History: Denies: Hx Seizures Renal/ Medical History: Denies: Hx Benign Prostatic Hyperplasia, Hx End Stage Renal Disease, Hx Kidney Stones, Hx Peritoneal Dialysis GI Medical History: Denies: Hx Cirrhosis, Hx Gastroesophageal Reflux Disease, Hx Ulcer Musculoskeltal Medical History: Denies Hx Arthritis, Denies Hx Multiple Sclerosis Psychiatric Medical History: Denies: Hx Bipolar Disorder, Hx Depression, Hx Schizophrenia Past Surgical History: Reports: Hx Herniorrhaphy - Bilateral, Hx Tonsillectomy Review of Systems - Review of Systems Notes: REVIEW OF SYSTEMS: CONSTITUTIONAL : Denies fever, chills, or sweats. Denies recent illness. Admits to high blood pressure EENT: Admits posterior neck pain CARDIOVASCULAR: Denies chest pain. Denies palpitations or racing or irregular heart beat. Denies ankle edema. RESPIRATORY: Denies cough, cold, or chest congestion. Denies shortness of breath, difficulty breathing, or wheezing. GASTROINTESTINAL: Denies abdominal pain or distention. Denies nausea, vomiting , or diarrhea. Denies blood in vomitus, stools, or per rectum. Denies black, tarry stools. Denies constipation. GENITOURINARY: Denies difficulty urinating, painful urination, burning, frequency, blood in urine, or discharge. MUSCULOSKELETAL: Denies back or neck pain or stiffness. Denies joint pain or swelling. SKIN: Denies rash, lesions or sores. HEMATOLOGIC : Denies easy bruising or bleeding. LYMPHATIC: Denies swollen, enlarged glands. NEUROLOGICAL: Denies confusion or altered mental status. Denies passing out or loss of consciousness. Denies dizziness or lightheadedness. Denies headache. Denies weakness or paralysis or loss of use of either side. Denies problems with gait or speech. Denies sensory loss, numbness, or tingling. Denies seizures. PSYCHIATRIC: Denies anxiety or stress. Denies depression, suicidal ideation, or homicidal ideation. ALL OTHER SYSTEMS REVIEWED AND NEGATIVE. Dictation was performed using [employer] voice recognition software PHYSICAL EXAMINATION: GENERAL: Well-appearing, well-nourished and in no acute distress. Patient's blood pressure is 149/89 HEAD: Atraumatic, normocephalic. EYES: Pupils equal round and reactive to light, extraocular movements intact, sclera anicteric, conjunctiva are normal. ENT: Nares patent, oropharynx clear without exudates. Moist mucous membranes. NECK: Normal range of motion, supple without lymphadenopathy pain with range of motion on bilateral lateral aspects no midline tenderness LUNGS: Breath sounds clear to auscultation bilaterally and equal. No wheezes rales or rhonchi. HEART: Regular rate and rhythm without murmurs ABDOMEN: Soft, nontender, nondistended abdomen. No guarding, no rebound. No masses appreciated. Musculoskeletal: Normal range of motion, no pitting or edema. No cyanosis. NEUROLOGICAL: Cranial nerves grossly intact. Normal speech, normal gait. Normal sensory, motor exams PSYCH: Normal mood, normal affect. SKIN: Warm, Dry, normal turgor, no rashes or lesions noted. Physical Exam - Vital signs Vitals: Temp Pulse Resp BP Pulse Ox 98.6 F 64 12 149/97 H 99 03/24/18 14:20 03/24/18 14:20 03/24/18 14:20 03/24/18 14:20 03/24/18 14:20 Course - Re-evaluation Re-evalutation: 03/24/18 15:05 Patient notes blood pressures were 180s over 120s at home just prior to arrival , I am unsure if the cause of the high blood pressure is that the machine is not functioning appropriately at home, I will have him bring his machine back so we can check both at the same time otherwise he can increase his Norvasc to 10 daily and will be given muscle relaxants After performing a Medical Screening Examination, I estimate there is LOW risk for RUPTURED ESOPHAGUS, PNEUMOTHORAX, PULMONARY EMBOLISM, ACUTE CORONARY SYNDROME, OR THORACIC AORTIC DISSECTION, thus I consider the discharge disposition reasonable. I have reevaluated this patient multiple times and no significant life threatening changes are noted. The patient and I have discussed the diagnosis and risks, and we agree with discharging home with close follow-up. We also discussed returning to the Emergency Department immediately if new or worsening symptoms occur. We have discussed the symptoms which are most concerning (e.g., bloody sputum, worsening pain or shortness of breath) that necessitate immediate return. - Vital Signs Vital signs: Temp Pulse Resp BP Pulse Ox 98.6 F 64 12 149/97 H 99 03/24/18 14:20 03/24/18 14:20 03/24/18 14:20 03/24/18 14:20 03/24/18 14:20 Discharge - Discharge Clinical Impression: Neck muscle spasm Hypertension Qualifiers: Hypertension type: essential hypertension Qualified Code(s): I10 - Essential ( primary) hypertension Condition: Stable Instructions: High Blood Pressure ([facility]) Additional Instructions: Follow up with your physician tomorrow for further care or return to the ED IMMEDIATELY if symptoms worsen or new concerns occur. If you cannot afford to follow up with your primary care physician a list of low cost clinics have been provided at the end of your discharge papers as well. Prescriptions: Amlodipine Besylate [Norvasc 10 mg Tablet] 10 mg PO DAILY #30 tablet Lorazepam [Ativan 0.5 mg Tablet] 0.5 mg PO Q4 PRN #10 tab PRN Reason:
--- NOTE | 2018-03-24 16:39 | EKG REPORT ---
SEVERITY:- OTHERWISE NORMAL ECG - SINUS RHYTHM BORDERLINE LEFT AXIS DEVIATION : Confirmed by: Darnell Rutherford 24-Mar-2018 16:39:15
== END 2018-03-24 15:02 | disposition home or self-care (01) ==
LOC: ER 14:03
DX: M62.830 Muscle spasm of back (principal); M54.2 Cervicalgia; I10 Essential (primary) hypertension; Z79.02 Long term (current) use of antithrombotics/antiplatelets
CPT/HCPCS: 93005; 93010; 99283

== ENCOUNTER 2018-05-28 00:48 | Observation (INO) | payer OTHER ==
[2018-05-28] MEDS ORDERED: ASPIRIN 81 MG TABLET, CHEWABLE PO ONE (02:51)
--- NOTE | 2018-05-28 02:53 | ER Document Report ---
ED Cardiac - General Chief Complaint: Chest Pain Stated Complaint: CHEST PAIN/NECK PAIN Time Seen by Provider: 05/28/18 02:45 Notes: Patient is a 62-year-old male comes emergency department for chief complaint of chest pain, he states that about midnight he started having pressure over the left side of his chest, nonradiating, he states after come to the emergency department symptoms significantly reduced and almost resolved. He denies diaphoresis, shortness of breath, nausea or vomiting. Daughter states he looks short of breath when he was having the pain. He was sitting watching TV when pain started. He does not have a history of MO, states he had a stress test 2 years ago, he was placed on Plavix, he takes medications for hypertension, he does have positive family history of MO. He denies smoking. TRAVEL OUTSIDE OF THE [place] IN LAST 30 DAYS: No - Related Data Allergies/Adverse Reactions: No Known Allergies Allergy (Unverified 03/24/18 14:05) Past Medical History - General Information source: Patient, Relative - Daughter - Social History Smoking Status: Never Smoker Frequency of alcohol use: None Drug Abuse: None Lives with: Family Family History: Reviewed & Not Pertinent, Malignancy - Gastric cancer and hepatic cancer Patient has suicidal ideation: No Patient has homicidal ideation: No - Past Medical History Cardiac Medical History: Reports: Hx Hypercholesterolemia, Hx Hypertension Denies: Hx Congestive Heart Failure, Hx Heart Attack Pulmonary Medical History: Denies: Hx Asthma, Hx Bronchitis, Hx COPD, Hx Pneumonia, Hx Tuberculosis Neurological Medical History: Denies: Hx Seizures Renal/ Medical History: Denies: Hx Benign Prostatic Hyperplasia, Hx End Stage Renal Disease, Hx Kidney Stones, Hx Peritoneal Dialysis GI Medical History: Denies: Hx Cirrhosis, Hx Gastroesophageal Reflux Disease, Hx Ulcer Musculoskeletal Medical History: Denies Hx Arthritis, Denies Hx Multiple Sclerosis Psychiatric Medical History: Denies: Hx Bipolar Disorder, Hx Depression, Hx Schizophrenia Past Surgical History: Reports: Hx Herniorrhaphy - Bilateral, Hx Tonsillectomy Review of Systems - Review of Systems Constitutional: No symptoms reported EENT: No symptoms reported Cardiovascular: See HPI Respiratory: No symptoms reported Gastrointestinal: No symptoms reported Genitourinary: No symptoms reported Male Genitourinary: No symptoms reported Musculoskeletal: No symptoms reported Skin: No symptoms reported Hematologic/Lymphatic: No symptoms reported Neurological/Psychological: No symptoms reported Physical Exam - Vital signs Vitals: Temp Pulse Resp BP Pulse Ox 97.9 F 70 18 146/86 H 97 05/28/18 01:41 05/28/18 01:41 05/28/18 01:41 05/28/18 01:41 05/28/18 01:41 - Notes Notes: GENERAL: Alert, interacts well. No acute distress. HEAD: Normocephalic, atraumatic. EYES: Pupils equal, round, and reactive to light. Extraocular movements intact. ENT: Oral mucosa moist, tongue midline. NECK: Full range of motion. Supple. Trachea midline. LUNGS: Clear to auscultation bilaterally, no wheezes, rales, or rhonchi. No respiratory distress. HEART: Regular rate and rhythm. No murmur ABDOMEN: Soft, non-tender. Non-distended. Bowel sounds present in all 4 quadrants. EXTREMITIES: Moves all 4 extremities spontaneously. No edema, normal radial and dorsalis pedis pulses bilaterally. No cyanosis. BACK: no cervical, thoracic, lumbar midline tenderness. No saddle anesthesia, normal distal neurovascular exam. NEUROLOGICAL: Alert and oriented x3. Normal speech. [cranial nerves II through XII grossly intact]. PSYCH: Normal affect, normal mood. SKIN: Warm, dry, normal turgor. No rashes or lesions noted. Course - Re-evaluation Re-evalutation: EKG showing sinus rhythm at a rate of 81, normal axis, QTC of 437, no T-wave inversions or ST segment changes in consecutive leads. Patient felt some discomfort on my initial evaluation but after aspirin symptoms resolved. No additional chest pain. Chest x-ray unremarkable, CBC, chemistry unremarkable, initial troponin is negative. His heart score is 4 (age , HPI, risk factors). We will cycle troponin. Discussed with patient, if troponin is negative I discussed chest pain rule out admission, patient states he is in full agreement with this. Second troponin is negative. Reevaluated patient again, he denies chest pain, he has no significant change from prior. 05/28/18 07:30 Spoke with Ashley Solis PA-C, patient will be admitted to telemetry observation. - Vital Signs Vital signs: Temp Pulse Resp BP Pulse Ox 97.9 F 70 12 129/96 H 95 05/28/18 01:41 05/28/18 01:41 05/28/18 06:01 05/28/18 06:00 05/28/18 06:01 - Laboratory Result Diagrams: 05/28/18 02:51 05/28/18 02:51 Laboratory results interpreted by me: 05/28/18 02:51 Glucose 119 H Discharge - Discharge Clinical Impression: Chest pain Qualifiers: Chest pain type: unspecified Qualified Code(s): R07.9 - Chest pain, unspecified Condition: Stable Disposition: ADMITTED OBSERVATION Admitting Provider: Hospitalist Unit Admitted: Telemetry
[2018-05-28 03:21] LABS: ABSOLUTE EOSINOPHILS # (AUTO) 0.2 10^3/uL (0.0-0.6); ABSOLUTE LYMPHOCYTES (AUTO) 1.5 10^3/uL (0.5-4.7); ABSOLUTE MONOCYTES (AUTO) 0.4 10^3/uL (0.1-1.4); ABSOLUTE NEUT (AUTO) 3.8 10^3/uL (1.7-8.2); BASOPHILS % (AUTO) 0.7 % (0-2); HEMATOCRIT 42.7 % (37.9-51.0); HEMOGLOBIN 14.6 g/dL (13.5-17.0); LYMPHOCYTES % (AUTO) 25.3 % (13-45); MEAN CORPUSCULAR HEMOGLOBIN 30.6 pg (27.0-33.4); MEAN CORPUSCULAR HGB CONC 34.2 g/dL (32.0-36.0); MEAN CORPUSCULAR VOLUME 89 fl (80-97); MONOCYTES % (AUTO) 7.5 % (3-13); PLATELET COUNT 187 10^3/uL (150-450); RED BLOOD COUNT 4.77 10^6/uL (4.35-5.55); RED CELL DISTRIBUTION WIDTH 13.5 % (11.5-14.0); SEGMENTED NEUTROPHILS % (AUTO) 63.5 % (42-78); TOTAL CELLS COUNTED % (AUTO) 100 %
[2018-05-28 03:41] LABS: ALANINE AMINOTRANSFERASE 34 U/L (21-72); ALBUMIN 4.4 g/dL (3.5-5.0); ALKALINE PHOSPHATASE 70 U/L (38-126); ANION GAP 10 (5-19); ASPARTATE AMINO TRANSFERASE 29 U/L (17-59); BILIRUBIN,DIRECT 0.3 mg/dL (0.0-0.4); BILIRUBIN,TOTAL 0.7 mg/dL (0.2-1.3); BLOOD UREA NITROGEN 14 mg/dL (7-20); CALCIUM 9.3 mg/dL (8.4-10.2); CARBON DIOXIDE 27 mmol/L (22-30); CHLORIDE 106 mmol/L (98-107); CREATINE KINASE 128 U/L (55-170); GLUCOSE 119 mg/dL (75-110); SODIUM 143.4 mmol/L (137-145); TOTAL PROTEIN 7.6 g/dL (6.3-8.2)
--- NOTE | 2018-05-28 03:44 | RADIOLOGY REPORT (SQ) ---
Chest single view on 05/28/2018 at 3:33 AM CLINICAL INDICATION: Chest pain COMPARISON: 02/14/2018 FINDINGS: There is evidence of prior granulomatous disease within the chest. The lungs are otherwise clear. Cardiac, hilar and mediastinal contours are within normal limits. Pulmonary vascularity is within normal limits. No bony abnormality is noted. Impression: No active disease.
[2018-05-28 03:52] LABS: CREATINE KINASE MB 1.61 ng/mL (<4.55)
[2018-05-28 03:54] LABS: TROPONIN I < 0.012 ng/mL
[2018-05-28] MEDS ORDERED: DEXTROSE 40% GEL 15 GM TUBE PO PRN ×2 (09:03)
[2018-05-28] MEDS ORDERED: TEMAZEPAM 7.5 MG CAPSULE PO PRN (09:03)
[2018-05-28] MEDS ORDERED: GLUCAGON,HUMAN RECOMB 1 MG INJ SUBCUT PRN (09:03)
[2018-05-28] MEDS ORDERED: ACETAMINOPHEN 325 MG TABLET PO PRN (09:03)
[2018-05-28] MEDS ORDERED: DEXTROSE 50%-WATER 25 GM/50 ML DISP.SYRIN IV PRN ×2 (09:03)
[2018-05-28] MEDS ORDERED: LORAZEPAM 0.5 MG TABLET PO PRN (09:07)
[2018-05-28] MEDS ORDERED: KETOROLAC TROMETHAMINE INJ/PF 30 MG/1 ML SDV IV PRN (09:10)
--- NOTE | 2018-05-28 09:34 | PDOC H&P ---
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. He presented to the emergency room with chest discomfort. He states that he had a pressure in the center of his chest and felt as if his blood pressure was high. He was seen at this facility last July. He had an NSTEMI that was felt to be secondary to hypertensive emergency. The patient had not been compliant with his blood pressure medications at that point. He did have a stress test performed which revealed no evidence of reversible ischemia. He had an echocardiogram that revealed grade 2 diastolic dysfunction and mild pulmonary hypertension. He was readmitted this past spring once again for hypertensive urgency which resolved. In any event, he states the pain radiated into his left shoulder and down his left arm. He was somewhat short of breath. He had no nausea or diaphoresis. He states this pain had almost resolved by the time he arrived at the emergency room. He was given a full dose aspirin and his pain totally resolved. He also reports that he has been having significant difficulties for the past month with worsening neck pain. He states that it hurts to turn his head and he often has pain that shoots down his left arm. He has numbness and tingling at times. Also he has left upper extremity weakness that waxes and wanes. Past Medical History Cardiac Medical History: Reports: Hyperlipidema, Hypertension Denies: Congestive Heart Failure, Myocardial Infarction Pulmonary Medical History: Denies: Asthma, Bronchitis, Chronic Obstructive Pulmonary Disease (COPD), Pneumonia, Tuberculosis EENT Medical History: Reports: None Neurological Medical History: Denies: Seizures Endocrine Medical History: Reports: None Renal/ Medical History: Denies: End Stage Renal Disease Malignancy Medical History: Reports: None GI Medical History: Denies: Cirrhosis, Gastroesophageal Reflux Disease Musculoskeltal Medical History: Denies: Arthritis Skin Medical History: Reports: None Psychiatric Medical History: Denies: Bipolar Disorder, Depression Traumatic Medical History: Reports: None Hematology: Denies: Anemia, Bleeding Tendencies Infectious Medical History: Reports: None Past Surgical History Past Surgical History: Reports: Herniorrhaphy - Bilateral, Tonsillectomy Social History Information Source: Patient Lives with: Family Smoking Status: Never Smoker Frequency of Alcohol Use: Occasional Hx Recreational Drug Use: No Drugs: None Hx Prescription Drug Abuse: No Family History Family History: Reviewed & Not Pertinent, Malignancy - Gastric cancer and hepatic cancer Parental Family History Reviewed: Yes Children Family History Reviewed: Yes Sibling(s) Family History Reviewed.: Yes Medication/Allergy Home Medications: Amlodipine Besylate [Norvasc 5 mg Tablet] 5 mg PO DAILY 05/28/18 Aspirin [Aspirin EC] 81 mg PO DAILY 05/28/18 Carvedilol [Coreg 6.25 mg Tablet] 6.25 mg PO DAILY 05/28/18 Clopidogrel Bisulfate [Clopidogrel] 75 mg PO DAILY 05/28/18 Isosorbide Mononitrate [Isosorbide Mononitrate ER] 30 mg PO Q12 05/28/18 Allergies/Adverse Reactions: No Known Allergies Allergy (Verified 05/28/18 09:10) Review of Systems Constitutional: ABSENT: chills, fatigue, fever(s), headache(s) Eyes: ABSENT: visual disturbances Ears: ABSENT: hearing changes Cardiovascular: PRESENT: chest pain - Chest pressure that radiates into the left shoulder and left arm. Gastrointestinal: ABSENT: abdominal pain, constipation, diarrhea, hematemesis, hematochezia, nausea, vomiting Genitourinary: ABSENT: dysuria, hematuria Musculoskeletal: PRESENT: other - The patient has pain with rotation of the neck as well as flexion and extension. He has pain that shoots across his shoulder and down his left arm. He has numbness and tingling down his left arm and occasionally has left arm weakness. Integumentary: ABSENT: rash, wounds Neurological: ABSENT: abnormal gait, abnormal speech, confusion, dizziness, focal weakness, syncope Physical Exam Vital Signs: Temp Pulse Resp BP Pulse Ox 97.9 F 70 15 142/97 H 95 05/28/18 01:41 05/28/18 01:41 05/28/18 09:00 05/28/18 09:00 05/28/18 09:00 General appearance: PRESENT: no acute distress, well-developed, well-nourished Head exam: PRESENT: atraumatic, normocephalic Eye exam: PRESENT: conjunctiva pink, EOMI, PERRLA. ABSENT: scleral icterus Ear exam: PRESENT: normal external ear exam Mouth exam: PRESENT: moist, tongue midline Neck exam: ABSENT: carotid bruit, JVD, lymphadenopathy, thyromegaly Respiratory exam: PRESENT: clear to auscultation mauro. ABSENT: rales, rhonchi, wheezes Cardiovascular exam: PRESENT: RRR. ABSENT: diastolic murmur, rubs, systolic murmur Pulses: PRESENT: normal dorsalis pedis pul GI/Abdominal exam: PRESENT: normal bowel sounds, soft. ABSENT: distended, guarding, mass, organolmegaly, rebound, tenderness Rectal exam: PRESENT: deferred Extremities exam: PRESENT: full ROM. ABSENT: calf tenderness, clubbing, pedal edema Musculoskeletal exam: PRESENT: other - Patient has pain when flexing and extending his neck and also when rotating his neck to the left. He also has pain over the left anterior chest wall that is quite tender to palpation. He has pain in his neck when he extends and lifts his left arm above his shoulder. Neurological exam: PRESENT: alert, awake, oriented to person, oriented to place , oriented to time, oriented to situation, CN II-XII grossly intact. ABSENT: motor sensory deficit Psychiatric exam: PRESENT: anxious Skin exam: PRESENT: dry, intact, warm. ABSENT: cyanosis, rash Assessment & Plan - Diagnosis (1) Chest pain Is this a current diagnosis for this admission?: Yes Plan: He has many risk factors for cardiac source of pain. He continues to have uncontrolled hypertension. We will bring him into the hospital overnight to rule out a cardiac source of his pain. However this chest pain is reproducible on exam and appears to be musculoskeletal in nature. I will repeat a 2D cardiac echo to see if there is been any changes as his blood pressures remained uncontrolled. We will trend his serial troponins overnight and obtain a stress test. (2) Cervical radiculopathy Is this a current diagnosis for this admission?: Yes Plan: He certainly seems to have cervical radiculopathy. He states that the pain has become so severe in his neck that he has been unable to work recently. He tries to go to work but then will have a crisis of pain and have to stop. Going to start him on a muscle relaxer and give him some IV Toradol today. We will obtain an MRI of the cervical spine for further evaluation. (3) Uncontrolled hypertension Is this a current diagnosis for this admission?: Yes Plan: Blood pressure remains uncontrolled. I am going to add lisinopril to his regimen. He already takes amlodipine and carvedilol at home. (4) Diastolic dysfunction Is this a current diagnosis for this admission?: Yes Plan: The patient had grade 2 diastolic dysfunction noted on echocardiogram performed last year. We will repeat a 2D cardiac echo today to make sure there have not been any further changes. (5) Hyperglycemia Is this a current diagnosis for this admission?: Yes Plan: He does not carry a diagnosis of diabetes. I will obtain a hemoglobin A1c in the morning. He will have a chemistry panel drawn in the morning as well. (6) Hyperlipidemia Is this a current diagnosis for this admission?: Yes Plan: He currently is not on a statin medication. I am going to start him on some low -dose simvastatin. This should be on the $4 list at [facility]. I am going to obtain a lipid panel in the morning. (7) Mild pulmonary hypertension Is this a current diagnosis for this admission?: Yes Plan: He appears to be asymptomatic from this. Again a 2D echocardiogram will be ordered. (8) Full code status Is this a current diagnosis for this admission?: Yes - Time Time Spent: 50 to 70 Minutes - Inpatient Certification Medical Necessity: Other - The patient will be placed in observation in the hospital. I expect his workup will span less than 2 midnights. Hopefully we can get his stress test performed in point him in the right direction in regards to his neck pain prior to leaving the hospital. I suspect he will be able to leave tomorrow after his stress test.
[2018-05-28] MEDS ORDERED: LOSARTAN POTASSIUM 50 MG TABLET PO SCH (10:00)
[2018-05-28] MEDS ORDERED: KETOROLAC TROMETHAMINE INJ/PF 30 MG/1 ML SDV IV ONE (10:00)
[2018-05-28] MEDS ORDERED: AMLODIPINE BESYLATE 10 MG TABLET PO SCH ×2 (10:00)
[2018-05-28] MEDS: CARVEDILOL 6.25 MG TABLET PO SCH (12:38)
[2018-05-28] MEDS: AMLODIPINE BESYLATE 5 MG TABLET PO SCH (12:39)
[2018-05-28] MEDS: CLOPIDOGREL BISULFATE 75 MG TABLET PO SCH (12:39)
[2018-05-28] MEDS: ISOSORBIDE MONONITRATE 30 MG TAB.ER.24H PO SCH ×2 (12:39→21:22)
[2018-05-28] MEDS: ASPIRIN 81 MG TABLET, CHEWABLE PO SCH (12:40)
[2018-05-28] MEDS: METHOCARBAMOL 750 MG TABLET PO SCH ×4 (12:40→21:23)
[2018-05-28] MEDS: LISINOPRIL 10 MG TABLET PO SCH (12:40)
[2018-05-28] MEDS: ENOXAPARIN SODIUM INJ 40 MG/0.4 ML DISP.SYRIN SUBCUT SCH ×2 (12:42→12:50)
--- NOTE | 2018-05-28 13:01 | RADIOLOGY REPORT (SQ) ---
EXAM DESCRIPTION: MRI CERVICAL SPINE WITHOUT COMPLETED DATE/TIME: 05/28/2018 11:29 am REASON FOR STUDY: cervical radiculopathy COMPARISON: None. TECHNIQUE: Sagittal and Axial imaging includes T1, T2, STIR and gradient echo sequences. LIMITATIONS: None. FINDINGS: ALIGNMENT: Straightening of the cervical curvature. VERTEBRAE: Intact. BONE MARROW: Normal. No marrow replacement or reactive changes. DISCS: Normal. No significant abnormal signal or loss of height. HARDWARE: None in the spine. CORD AND BASE OF BRAIN: Normal in size and signal intensity. SOFT TISSUES: No soft tissue masses. C1-C2: No significant spinal stenosis. C2-C3: No significant spinal stenosis or exit foraminal stenosis. C3-C4: Mild posterior disc and osteophyte. Uncovertebral spurring and facet arthropathy. Mild spina l stenosis and moderate left exit foraminal stenosis. C4-C5: Mild posterior disc and osteophyte. Uncovertebral spurring. Mild spinal stenosis and moderat e left exit foraminal stenosis. C5-C6: Mild posterior disc and osteophyte. Uncovertebral spurring. No significant spinal stenosis. Mild to moderate left exit foraminal stenosis. C6-C7: No significant spinal stenosis or exit foraminal stenosis. C7-T1: No significant spinal stenosis or exit foraminal stenosis. UPPER THORACIC: Incompletely imaged. No significant spinal stenosis or exit foraminal stenosis. OTHER: No other significant finding. IMPRESSION: MULTILEVEL CHRONIC DEGENERATIVE CHANGES DESCRIBED ABOVE. NO ACUTE FINDINGS. TECHNICAL DOCUMENTATION: JOB ID: [id number] [employer]- All Rights Reserved Reading location - IP/workstation name: [email or web address]
--- NOTE | 2018-05-28 22:01 | EKG REPORT ---
SEVERITY:- NORMAL ECG - SINUS RHYTHM : Confirmed by: Darnell Rutherford 28-May-2018 22:00:41
[2018-05-29 05:31] LABS: HEMATOCRIT 37.1 % (37.9-51.0); HEMOGLOBIN 12.9 g/dL (13.5-17.0); MEAN CORPUSCULAR HEMOGLOBIN 30.8 pg (27.0-33.4); MEAN CORPUSCULAR HGB CONC 34.7 g/dL (32.0-36.0); MEAN CORPUSCULAR VOLUME 89 fl (80-97); PLATELET COUNT 148 10^3/uL (150-450); RED BLOOD COUNT 4.19 10^6/uL (4.35-5.55); RED CELL DISTRIBUTION WIDTH 13.4 % (11.5-14.0); WHITE BLOOD COUNT 8.5 10^3/uL (4.0-10.5)
[2018-05-29 05:57] LABS: ANION GAP 9 (5-19); BLOOD UREA NITROGEN 17 mg/dL (7-20); CALCIUM 8.7 mg/dL (8.4-10.2); CARBON DIOXIDE 25 mmol/L (22-30); CHLORIDE 107 mmol/L (98-107); CHOLESTEROL 181.79 mg/dL (0-200); GLUCOSE 100 mg/dL (75-110); POTASSIUM 3.7 mmol/L (3.6-5.0); SODIUM 140.7 mmol/L (137-145); TRIGLYCERIDES 98 mg/dL (<150)
[2018-05-29] MEDS ORDERED: LANSOPRAZOLE 30 MG TAB.RAP.DR PO SCH (06:00)
[2018-05-29 06:08] LABS: DIRECT LDL 112 mg/dL (<100)
--- NOTE | 2018-05-29 09:24 | EKG REPORT ---
SEVERITY:- NORMAL ECG - SINUS RHYTHM : Confirmed by: Darnell Rutherford 29-May-2018 09:23:27
[2018-05-29] MEDS: CARVEDILOL 6.25 MG TABLET PO SCH (11:26)
[2018-05-29] MEDS: CLOPIDOGREL BISULFATE 75 MG TABLET PO SCH (11:26)
[2018-05-29] MEDS: ASPIRIN 81 MG TABLET, CHEWABLE PO SCH (11:26)
[2018-05-29] MEDS: ISOSORBIDE MONONITRATE 30 MG TAB.ER.24H PO SCH (11:26)
[2018-05-29] MEDS: AMLODIPINE BESYLATE 5 MG TABLET PO SCH (11:26)
[2018-05-29] MEDS: METHOCARBAMOL 750 MG TABLET PO SCH ×3 (11:26→17:42)
[2018-05-29] MEDS: LISINOPRIL 10 MG TABLET PO SCH (11:27)
[2018-05-29] MEDS: ENOXAPARIN SODIUM INJ 40 MG/0.4 ML DISP.SYRIN SUBCUT SCH (11:27)
[2018-05-29] MEDS ORDERED: REGADENOSON INJ 0.4 MG/5 ML DISP.SYRIN IV ONE (12:28)
--- NOTE | 2018-05-29 16:17 | PDOC DISCHARGE SUMMARY ---
General - Admit/Disc Date/PCP Admission Date/Primary Care Provider: 05/28/18 07:37 Discharge Date: 05/29/18 - Discharge Diagnosis (2) Hyperlipidemia Is this a current diagnosis for this admission?: Yes - Additional Information Resuscitation Status: Full Code Discharge Diet: Cardiac Discharge Activity: Activity As Tolerated Prescriptions: Lisinopril [Prinivil 10 mg Tablet] 20 mg PO DAILY 30 Days #30 tablet Home Medications: Amlodipine Besylate [Norvasc 5 mg Tablet] 5 mg PO DAILY 05/28/18 Aspirin [Aspirin EC] 81 mg PO DAILY 05/28/18 Carvedilol [Coreg 6.25 mg Tablet] 6.25 mg PO DAILY 05/28/18 Clopidogrel Bisulfate [Clopidogrel] 75 mg PO DAILY 05/28/18 Isosorbide Mononitrate [Isosorbide Mononitrate ER] 30 mg PO Q12 05/28/18 Lisinopril [Prinivil 10 mg Tablet] 20 mg PO DAILY 30 Days #30 tablet 05/29/18 History of Present Illness History of Present Illness: KEO FORMAN is a 62 year old male 62 years old white male presents to the emergency room due to chest discomfort. Apparently he felt pressure in the center of his chest and feels as if his blood pressure was high. He had similar presentation loss July. That was positive for non-STEMI and was felt that was due to hypertensive emergency. He had an echocardiogram in the past that was positive for grade 2 diastolic dysfunction and mild pulmonary hypertension Hospital Course Hospital Course: She was admitted for observation his EKG and troponin was on remarkable. Cardiology recommended cardiac stress test that was negative. Patient has complained of neck pain. MRI was ordered and showed chronic degenerative disease no acute problems. Patient is chest pain-free and back to baseline and clear for discharge Physical Exam Vital Signs: Temp Pulse Resp BP Pulse Ox 98.8 F 64 16 119/66 99 05/29/18 07:25 05/29/18 07:25 05/29/18 07:25 05/29/18 07:25 05/29/18 07:25 Intake & Output 05/28/18 05/29/18 05/30/18 06:59 06:59 06:59 Intake Total 1210 Balance 1210 Weight 156 lb 15.506 oz Additional comments: Alert and oriented to time place person No anxiety or depression Atraumatic normocephalic Trachea central no lymphadenopathy of the neck Regular rate and rhythm no murmurs No peripheral edema Lungs clear bilaterally no wheezing or rhonchi Abdomen nontender nondistended no organomegaly Neurologically intact Results Laboratory Results: 05/29/18 04:39 05/29/18 04:39 05/29/18 05/29/18 04:39 04:39 WBC 8.5 RBC 4.19 L Hgb 12.9 L Hct 37.1 L MCV 89 MCH 30.8 MCHC 34.7 RDW 13.4 Plt Count 148 L Sodium 140.7 Potassium 3.7 Chloride 107 Carbon Dioxide 25 Anion Gap 9 BUN 17 Creatinine 0.90 Est GFR ( Amer) > 60 Est GFR (Non-Af Amer) > 60 Glucose 100 Calcium 8.7 Magnesium 2.1 Triglycerides 98 Cholesterol 181.79 LDL Cholesterol Direct 112 H VLDL Cholesterol 20.0 HDL Cholesterol 39 L 05/29/18 08:42 Troponin I < 0.012 Impressions: Cervical Spine MRI 05/28/18 00:00 IMPRESSION: MULTILEVEL CHRONIC DEGENERATIVE CHANGES DESCRIBED ABOVE. NO ACUTE FINDINGS. Qualifiers - * PATIENT BEING DISCHARGED WITH ANY OF THE FOLLOWING DIAGNOSIS: No
[2018-05-29 18:14] VITALS: BP 128/81
--- NOTE | 2018-06-04 | DRAGON STRESS TEST REPORT ---
Intravenous Lexiscan Cardiolite stress test using single photon emmision computerized tomography. Date of procedure: 05/29/2018. Ordering Provider: ARACELI Rausch. Patient 's status: In Patient. Indication: Chest pain. Coronary risk factors: Age, diabetes mellitus, and hypertension. Resting EKG: Sinus Rhythm. Poor R-wave progression leads V1 to V6. Stress EKG: No changes of ischemia. The patient had no chest pain or discomfort, and there were no arrhythmias seen. Reason for termination: Protocol. Conclusions: Normal EKG and hemodynamic response to IV Lexiscan. Nuclear data: At rest the patient was given 10.73 millicuries of technetium 99m sestamibi injected intravenously. As per protocol rest non gated SPECT images were obtained. Subsequently the patient was given intravenous Lexiscan at a dose of 0.4 mg in 5 mL intravenously, followed by flush with normal saline. Subsequently the stress dose of 31.2 millicuries of technetium 99m sestamibi was injected intravenously. As per protocol stress gated images were obtained. Nuclear interpretation: Review of images showed that all segments of the myocardium had normal perfusion at rest, and normal perfusion post stress with IV Lexiscan. All segments of the myocardium had normal motion, contraction, and thickening by gated study. T. I D. ratio was normal at 1.03. Computer read rest, and stress left ventricular ejection fraction were 70 %, and 69 %, respectively. Conclusion: 1. There is no scintigraphic evidence of Lexiscan induced myocardial ischemia. 2. There is no scintigraphic evidence of myocardial infarction/scar. Recommendations: Aggressive risk factor modification, and treating the underlying co- morbidities. MTDD
== END 2018-05-29 18:14 | disposition home or self-care (01) ==
LOC: ER 00:48 → EH 07:37 → 4N 11:59
PROVIDERS: ADMIT Internal Medicine; ATTEND Internal Medicine
DX: R07.89 Other chest pain (principal); E78.5 Hyperlipidemia, unspecified; M50.31 Other cervical disc degeneration, high cervical region; I11.9 Hypertensive heart disease without heart failure; R73.9 Hyperglycemia, unspecified; I27.20 Pulmonary hypertension, unspecified; I25.2 Old myocardial infarction; Z79.899 Other long term (current) drug therapy; Z82.49 Family history of ischemic heart disease and other diseases of the circulatory system; Z79.02 Long term (current) use of antithrombotics/antiplatelets
CPT/HCPCS: 93005 ×2; 99285; 96374; 36415 ×2; 82553; 82550; 83735; 85025; 85027; 80048; 80053; 84484 ×2; 83036; 80061; 93017; 72141; 71045; 78452; 93010 ×2; G0378 ×3; A9500; J2785; J3490 ×4; J1885; Q9969; J1650

== ENCOUNTER → 2019-11-30 | Outpatient (CLI) | payer BC, OTHER ==
--- NOTE | 2019-11-30 10:04 | RADIOLOGY REPORT (SQ) ---
EXAM DESCRIPTION: L SPINE 2 VIEWS COMPLETED DATE/TIME: 11/30/2019 9:46 am REASON FOR STUDY: LUMBAR DDD M51.36 OTHER INTERVERTEBRAL DISC DEGENERATION, LUMBAR REGION M50.30 O THER CERVICAL DISC DEGENERATION, UNSP CERVICAL REGIO COMPARISON: None. NUMBER OF VIEWS: Two views. TECHNIQUE: AP and lateral radiographic images acquired of the lumbar spine. LIMITATIONS: None. FINDINGS: MINERALIZATION: Normal. SEGMENTATION: There 6 [id number] lumbar vertebral bodies. Incomplete fusion of the posterior ar ch of the L6 vertebral body ALIGNMENT: Grade 1 anterolisthesis of L6 on S1. VERTEBRAE: No definite fracture. Mild multilevel endplate change. DISCS: Multilevel disc height loss throughout the lumbar spine. POSTERIOR ELEMENTS: Lower lumbar facet arthropathy. Questionable L6 pars defects. HARDWARE: None in the spine. PARASPINAL SOFT TISSUES: Normal. PELVIS: Intact as visualized. No fractures or worrisome bone lesions. SI joints intact. OTHER: No other significant finding. IMPRESSION: 1. 6 [id number] lumbar vertebral bodies. 2. No definite acute bony abnormality. 3. Grade 1 anterolisthesis of L6 on S1. Multilevel disc height loss and lower lumbar facet arthropa thy. TECHNICAL DOCUMENTATION: JOB ID: [id number] [employer]- All Rights Reserved Reading location - IP/workstation name: [email or web address]
--- NOTE | 2019-11-30 10:41 | RADIOLOGY REPORT (SQ) ---
EXAM DESCRIPTION: CERV SP 3 VIEW OR LESS COMPLETED DATE/TIME: 11/30/2019 9:46 am REASON FOR STUDY: CERVICAL DDD M51.36 OTHER INTERVERTEBRAL DISC DEGENERATION, LUMBAR REGION M50.30 OTHER CERVICAL DISC DEGENERATION, UNSP CERVICAL REGIO COMPARISON: None. NUMBER OF VIEWS: Two views TECHNIQUE: AP and lateral radiographic images acquired of the cervical spine. LIMITATIONS: None. FINDINGS: MINERALIZATION: Normal. ALIGNMENT: Straightening of the normal cervical lordosis. VERTEBRAE: Normal height. No evidence of fracture. Multilevel endplate change with osteophytosis gr eatest at C5-6. DISCS: Multilevel disc height loss greatest at C5 through C7. HARDWARE: None in the spine. SOFT TISSUES: No masses or calcifications. Lung apices clear. OTHER: No other significant finding. IMPRESSION: 1. No evidence of acute bony abnormality of the cervical spine. 2. Multilevel degenerative changes greatest at C5-6. TECHNICAL DOCUMENTATION: JOB ID: [id number] [employer]- All Rights Reserved Reading location - IP/workstation name: [email or web address]
== END ==
LOC: RAD 09:16
PROVIDERS: ATTEND Nurse Practitioner Primary Care
DX: M51.36 Other intervertebral disc degeneration, lumbar region (principal); M50.30 Other cervical disc degeneration, unspecified cervical region
CPT/HCPCS: 72040; 72100